=== PATIENT | female | born 1960 | race Caucasian/White ===

== ENCOUNTER → 2017-08-26 | Outpatient (CLI) | payer OTHER, BC ==
[~2017-08-26] MED LIST: APRE1TAB3 PO; CYAN1LOZ2 PO; GARL10007 PO; MULT-506 PO; NAPR-1169 PO; VNTHFA/IN INH
--- NOTE | 2017-08-26 16:03 | DIAGNOSTIC IMAGING REPORT ---
L HAND MIN 3 VIEWS ROUTINE CLINICAL HISTORY: Left hand pain. Trauma. COMPARISON: None. DISCUSSION: No acute fractures or dislocations are visualized. There are minor degenerative changes. IMPRESSION: No acute fractures or dislocations identified. Electronically signed by: Charles Walters M.D. 08/26/2017 4:01 PM Dictated Date/Time: 08/26/2017 4:00 PM
== END | disposition home or self-care (01) ==
LOC: C.RAD1850 15:52
PROVIDERS: ATTEND Nurse Practitioner Adult Health
DX: M79.642 Pain in left hand (principal)

== ENCOUNTER 2017-11-19 22:46 | Emergency (ER) | payer BC, OTHER ==
[~2017-11-19] VITALS: Ht 162.6 cm; Wt 79.9 kg
[2017-11-19] MEDS ORDERED: OXYMETAZOLINE HCL 0.05% NA SPR 15 ML BTL ONE (22:47)
[2017-11-19 22:51] VITALS: TEMP 36.6; Ht 162.6 cm; Wt 79.9 kg
[2017-11-19] MEDS ORDERED: CHOL20007 PO (23:04)
[2017-11-19] MEDS ORDERED: VITACAP26 PO (23:05)
[2017-11-19] MEDS ORDERED: ROSU20TA PO (23:27)
[2017-11-20 00:47] VITALS: BP 137/88; PULSE 78; O2SAT 100
--- NOTE | 2017-11-20 01:02 | EMERGENCY ROOM VISIT NOTE ---
History First contact with patient: 22:50 Chief Complaint: NOSE BLEED (MINOR) Stated Complaint: NOSE BLEED History of Present Illness The patient is a 57 year old female who presents to the Emergency Room with complaints of nosebleed just prior to arrival. Patient states she's been blowing her nose more frequently this week. She is on a baby aspirin and occasionally takes naproxen per patient. Patient denies chest pain, dyspnea, fever, chills, cough, congestion, lightheadedness, and dizziness, weakness. No history of nosebleeds in the past. Review of Systems See HPI for pertinent positives & negatives. A total of 10 systems reviewed and were otherwise negative. Past Medical/Surgical History Medical Problems: (1) Asthma (2) Hypertension Surgical Problems: (1) S/P tonsillectomy Family History Diabetes mellitus FH: heart disease FHx: cancer Hypertension Social History Smoking Status: Never Smoker Alcohol Use: none Drug Use: none Marital Status: Housing Status: lives with family Occupation Status: employed Current/Historical Medications Scheduled Albuterol Hfa (Ventolin Hfa), 2-4 PUFFS INH Q6H Apremilast (Otezla), 30 MG PO BID Cholecalciferol (Vitamin D3), 1 TAB PO DAILY Multivitamin (Multivitamin), 2 TAB PO DAILY Naproxen (Naprosyn), 500 MG PO BID Rosuvastatin Calcium (Crestor), Unknown Dose PO 2XWK Vitamins C & E (Vitamin C), 1 CAP PO DAILY Physical Exam Vital Signs Date Time Temp Pulse Resp B/P (MAP) Pulse Ox O2 Delivery O2 Flow Rate FiO2 11/19/17 23:40 87 18 138/89 100 11/19/17 22:51 36.6 85 20 177/108 96 Room Air Physical Exam VITALS: Vitals are noted on the nurse's note and reviewed by myself. Vital signs hypertensive GENERAL: Pleasant female anxious-appearing, in no acute distress, nondiaphoretic , well-developed well-nourished. SKIN: The skin was without rashes, erythema, edema, or bruising. There is no tenting of the skin. Capillary reflex less than 2 seconds. HEAD: Normocephalic atraumatic. EARS: External auditory canals clear, tympanic membranes pearly pollard without erythema or effusion bilaterally. EYES: Pupils equal round and reactive to light and accommodation. Conjunctivae without injection, sclerae without icterus. Extraocular movements intact. NOSE: Patent, left nare with active bleeding. No sinus tenderness. MOUTH: Mucous membranes moist. Pharynx without erythema or exudate. Uvula midline. Airway patent. Tongue does not deviate. No active bleeding in the back of the pharynx that was visualized. NECK: Supple without nuchal rigidity. No lymphadenopathy. No thyromegaly. Cervical spine is nontender. No JVD. HEART: Regular rate and rhythm without murmurs gallops or rubs. LUNGS: Clear to auscultation bilaterally without wheezes, rales or rhonchi. No dullness to percussion. No retractions or accessory muscle use. ABDOMEN: Positive bowel sounds x 4. Normal tympanic percussion. Soft, nontender, without masses or organomegaly. Aleman sign negative. No guarding or rebound tenderness. MUSCULOSKELETAL: No muscle atrophy, erythema, or edema noted. NEURO: Patient was alert and oriented to person place and time. Normal sensation to light and sharp touch. No focal neurological deficits. Medical Decision & Procedures Medications Administered Medications (Trade) Dose Ordered Sig/Lobito Route Start Time Stop Time Status Last Admin Dose Admin Oxymetazoline HCl (Afrin 0.05% Nasal [place]) 75 sprays STK-MED ONCE .ROUTE 11/19/17 22:47 11/19/17 22:48 DC 11/19/17 22:47 75 SPRAYS ED Course Prior records/ancillary studies reviewed. Triage Nursing notes reviewed. Additional history obtained from EMS. The patient's history was concerning for epistaxis. Differential diagnosis: Etiologies such as anterior epistaxis, coagulopathy, traumatic injury, fracture , septal hematoma, posterior epistaxis as well as other pathologies were entertained. Physical examination findings: As above. Anterior bleeding source. ER treatment provided: Direct pressure Intranasal phenylephrine On reassessment the patient felt better. Diagnostics interpreted by me: Deferred This appears to be consistent with epistaxis. Patient was observed for 2 hours. No more rebleeding. Blood pressure came down on its. She is advised to hold her antiplatelet medication for the next 3 days and follow-up with ENT or family here in a few days or here in the ER sooner for bleeding, headache, chest pain, dyspnea, worsening signs or symptoms or as needed. Patient was neurovascularly and neurologically intact. She is well-appearing. She was asymptomatic. By the evaluation outlined above emergent etiologies such as coagulopathy, traumatic injury, fracture, septal hematoma, posterior epistaxis, as well as others were deemed relatively unlikely. The pt informed about the findings as listed above. All questions were answered and \ pleased with the treatment. Return instructions were outlined and the patient was discharged in stable condition. Referral: The patient was referred to family care and/or ENT for a recheck of the current condition Medical Decision As above Medication Reconcilliation Current Medication List: was personally reviewed by me Blood Pressure Screening Patient's blood pressure: Elevated blood pressure Blood pressure disposition: Elevated BP felt to be situational Impression Primary Impression: Anterior epistaxis Departure Information Dispostion Home / Self-Care Condition GOOD Forms WORK / SCHOOL INSTRUCTIONS, HOME CARE DOCUMENTATION FORM, IMPORTANT VISIT INFORMATION Patient Instructions Nosebleeds - [facility], Former[facility], [facility]–1983 Additional Instructions Do not take your aspirin or naproxen for the next 3 days. Avoid scratching, rubbing, picking, or blowing your nose. The continuous drier helper your nasal passages the more likely they are to bleed. The following two products are available [id number] at most drug stores/pharmacies. [place] nasal spray or similar generic saline spray to keep the nose moist 3 to 4 times a day. If bleeding recurs apply direct pressure for an uninterrupted 20 minutes. On and off pressure is much less effective because it will disturb the clots that are forming. If the bleeding is still a problem after 20 minutes or is so heavy despite the pressure return to the emergency department. Continue current medications. For ENT([id number]) follow up call Dr. Mckinney office at [phone] for an appointment this week. Tell the manager civil you were referred from the ER. Follow-up with your primary care physician in 2 to 3 days for a recheck of your current condition.
== END 2017-11-20 00:48 | disposition home or self-care (01) ==
LOC: EDBD 22:46 → C.EDB 22:47
DX: R04.0 Epistaxis (principal); J45.909 Unspecified asthma, uncomplicated; I10 Essential (primary) hypertension; Z79.82 Long term (current) use of aspirin; Z83.3 Family history of diabetes mellitus; Z82.49 Family history of ischemic heart disease and other diseases of the circulatory system

== ENCOUNTER 2017-11-24 09:51 | Emergency (ER) | payer OTHER ==
[~2017-11-24 09:51] MED LIST changes: +CHOL20007 PO; -CYAN1LOZ2 PO; -GARL10007 PO; +ROSU20TA PO; +VITACAP26 PO
[2017-11-24 09:55] VITALS: TEMP 36.5
[2017-11-24] MEDS ORDERED: OXYMETAZOLINE HCL 0.05% NA SPR 15 ML BTL ONE (10:03)
--- NOTE | 2017-11-24 11:31 | EMERGENCY ROOM VISIT NOTE ---
History Report prepared by Blas: Trevon Glass Under the Supervision of: Dr. Dhara Matt M.D. First contact with patient: 10:43 Chief Complaint: NOSE BLEED (MINOR) Stated Complaint: NOSE BLEED HERE SAT FOR SAME THING History of Present Illness The patient is a 57 year old female who presents to the Emergency Room with complaints of on and off nose bleeding for the past week. The patient states that she was in the ED a week ago with a nosebleed, and she was sent home with a nose spray and clamp, and as soon as she got home it started to bleed again. She is currently on aspirin, and she took a naproxen yesterday for her neck pain. The patient has been in contact with her ENT doctor. She states that her stool is bloody and also black. She additionally states that she is on cholesterol medicine, and it has been bothering her. Source of History: patient Onset: a week ago Position: nose Quality: other (bleeding) Timing: other (on and off) Associated Symptoms: + neck pain Note: Associated symptoms: black and bloody stool Review of Systems See HPI for pertinent positives & negatives. A total of 10 systems reviewed and were otherwise negative. Past Medical & Surgical Medical Problems: (1) Asthma (2) Hypertension Surgical Problems: (1) S/P tonsillectomy Family History Diabetes mellitus FH: heart disease FHx: cancer Hypertension Social History Smoking Status: Never Smoker Alcohol Use: none Drug Use: none Marital Status: Housing Status: lives with family Occupation Status: employed Current/Historical Medications Scheduled Acetaminophen (Tylenol Extra Strength), 2 TABS PO Q4H Albuterol Hfa (Ventolin Hfa), 2-4 PUFFS INH Q6H Amoxicillin (Amoxil), 500 MG PO TID Apremilast (Otezla), 30 MG PO BID Cholecalciferol (Vitamin D3), 1 TAB PO QAM Diphenhydramine Hcl (Sleep) (Sleep Aid), 1 TAB PO HS Multivitamin (Multivitamin), 2 TAB PO QAM Allergies Coded Allergies: Codeine (Unverified Allergy, Unknown, THROAT SWELLING, 11/25/17) Physical Exam Vital Signs Date Time Temp Pulse Resp B/P (MAP) Pulse Ox O2 Delivery O2 Flow Rate FiO2 11/24/17 11:49 84 17 154/95 95 11/24/17 09:55 36.5 102 20 175/108 98 Room Air Physical Exam Vital signs reviewed. General: Well-appearing female, in no significant distress. HEENT: No scleral icterus, PERRLA, neck supple. Atraumatic. Dried blood to the right naris greater than the left naris. No posterior oropharynx bleeding. Cardiovascular: Regular rate and rhythm, no extra sounds. Pulmonary: Clear to auscultation bilaterally, normal work of breathing. Abdomen: Soft, nontender, nondistended, positive bowel sounds. Musculoskeletal: Atraumatic, no peripheral edema. Neurologic: Patient awake alert and oriented x 3 Skin: Warm, dry, no rash Medical Decision & Procedures Laboratory Results Test 11/24/17 11:12 Bedside Hemoglobin 11.6 g/dl (12.0-16.0) Bedside Hematocrit 34 % (37-47) Bedside Sodium 142 mEq/L (135-144) Bedside Potassium 3.8 mEq/L (3.3-5.0) Bedside Chloride 106 mEq/L (101-112) Bedside Total CO2 26 mEq/l (24-31) Anion Gap 15.0 mmol/L (16-25) Bedside Blood Urea Nitrogen 21 mg/dl (7-18) Bedside Creatinine 0.5 mg/dl (0.6-1.3) Bedside Glucose (other) 106 mg/dl (70-99) Bedside Ionized Calcium (Nicolasa) 1.19 mmol/l (1.12-1.32) Laboratory results per my review. Medications Administered Medications (Trade) Dose Ordered Sig/Lobito Route Start Time Stop Time Status Last Admin Dose Admin Oxymetazoline HCl (Afrin 0.05% Nasal [place]) 75 sprays STK-MED ONCE .ROUTE 11/24/17 10:03 11/24/17 10:04 DC 11/24/17 10:03 75 SPRAYS Procedure Anterior Nasal Packing Indication: recurrent epistaxis Verbal consent obtained. Risks and benefits were explained with the usual customary discussion. A time out was taken. No visible acute bleeding no clots seen anteriorly. A 5.5-cm nasal balloon was placed in a standard fashion in the right naris. The patient tolerated this well. Hemostasis was achieved. No complications. ED Course 1003: Ordered Oxymetazoline HCl 75 sprays .ROUTE 1052: Past medical records reviewed. The patient was evaluated in room C10. A complete history and physical examination was performed. 1103: I discussed the patient's case with Dr. Naif GEORGES, and he says to karoline the patient, and he will see her in the office four days. If the patient bleeds tomorrow, then she should come in, and he will come in for an emergent scope. 1130: I performed put in an anterior nasal packing as described above. I discussed findings with her. She verbalized agreement of the treatment plan. She was discharged home. Medical Decision Differential diagnosis: Etiologies such as anterior epistaxis, coagulopathy, traumatic injury, fracture , septal hematoma, posterior epistaxis as well as other pathologies were entertained. This patient was evaluated and appeared to be in no significant distress. IV access was obtained and laboratory work was drawn. The patient was placed on the night monitor and found to be in a normal sinus rhythm. Patient was given Afrin nasal spray protocol. On my evaluation there is no further bleeding. The clamp was removed and she was observed. The patient is very distraught by multiple episodes of epistaxis daily for the last week. I did speak with Dr. Disla as the patient did not initially want nasal packing. The patient was offered hemoderm topical powder however she does not feel that this is sufficient and she feels she will likely blow her nose despite advice otherwise. Family and patient consulted and decided the nasal packing is what they would prefer. A 5.5 cm rapid Rhino was placed in the right nares with 5 mL 's of air. The patient would not tolerate more. She was placed on amoxicillin 3 times a day for the next 3 days. Arrangements were made for the patient to return in 48 hours for packing removal in the emergency department. The patient will follow-up next week with Dr. Disla of ENT. She will return to the ER over the weekend for recurrent bleeding or any medical concerns. Medication Reconcilliation Current Medication List: was personally reviewed by me Blood Pressure Screening Patient's blood pressure: Elevated blood pressure Blood pressure disposition: Elevated BP felt to be situational Consults Time Called: 1102 Consulting Physician: Dr. Naif GEORGES Returned Call: 1103 I discussed the patient's case with Dr. Naif GEORGES, and he says to karoline the patient, and he will see her in the office four days. If the patient bleeds tomorrow, then she should come in, and he will come in for an emergent scope. Impression Primary Impression: Epistaxis Scribe Attestation The scribe's documentation has been prepared under my direction and personally reviewed by me in its entirety. I confirm that the note above accurately reflects all work, treatment, procedures, and medical decision making performed by me. Departure Information Dispostion Home / Self-Care Prescriptions Amoxicillin (AMOXIL) 500 Mg Cap 500 MG PO TID, #21 CAP Prov: Dhara Matt M.D. 11/24/17 Referrals Alis Patterson D.O. (PCP) Forms HOME CARE DOCUMENTATION FORM, IMPORTANT VISIT INFORMATION, WORK / SCHOOL INSTRUCTIONS Patient Instructions My [facility] Additional Instructions Diagnosis: Recurrent epistaxis Amoxicillin 500 mg 3 times a day for 3 days. Do not take ibuprofen, Aleve or aspirin. Tylenol 650 mg every 6 hours as needed for pain. Leave the nasal packing in place. Do not blow your nose until you are reevaluated in 48 hours. Use a warm air humidifier at night to sleep. Return to the emergency department on Tuesday for nasal packing removal. Follow-up with Dr. Disla as scheduled for you by case management Tuesday at 11:00. Return to the ER for worsening of symptoms or any medical concerns.
[2017-11-24 11:33] LABS: ISTAT CREATININE 0.5 mg/dl (0.6-1.3); ISTAT IONIZED CALCIUM 1.19 mmol/l (1.12-1.32); ISTAT POTASSIUM 3.8 mEq/L (3.3-5.0)
[2017-11-24] MEDS ORDERED: AMOX500C3 PO (11:37)
[2017-11-24 11:49] VITALS: BP 154/95; PULSE 84; O2SAT 95
[2017-11-25] MEDS ORDERED: DIPH1TAB98 PO (14:32)
[2017-11-25] MEDS ORDERED: ACET-1257 PO (14:32)
[2017-11-28] MEDS ORDERED: TRAM-10 PO (16:26)
[2017-11-28] MEDS ORDERED: AMOX875T PO (16:26)
== END 2017-11-24 11:50 | disposition home or self-care (01) ==
LOC: C.EDB 09:52 → C.EDC 11:50
DX: R04.0 Epistaxis (principal); J45.909 Unspecified asthma, uncomplicated; I10 Essential (primary) hypertension; Z83.3 Family history of diabetes mellitus; Z82.49 Family history of ischemic heart disease and other diseases of the circulatory system

== ENCOUNTER 2017-11-25 13:54 | Emergency (ER) | payer OTHER ==
[~2017-11-25] VITALS: Ht 162.6 cm; Wt 74.4 kg
[~2017-11-25 13:54] MED LIST changes: +AMOX500C3 PO
[2017-11-25 13:57] VITALS: TEMP 36.6; Ht 162.6 cm; Wt 74.4 kg
[2017-11-25] MEDS ORDERED: DIPH1TAB98 PO ×2 (14:32)
[2017-11-25] MEDS ORDERED: ACET-1257 PO ×2 (14:32)
--- NOTE | 2017-11-25 14:35 | EMERGENCY ROOM VISIT NOTE ---
History Report prepared by Blas: Luis Carlos Griffin Under the Supervision of: Dr. Shiv Nicholas D.O. First contact with patient: 14:01 Chief Complaint: NOSE BLEED (MINOR) Stated Complaint: INFLATE BALO[place] IN NOSE History of Present Illness The patient is a 57 year old female who presents to the Emergency Room with complaints of intermittent epistaxis that began yesterday. She was seen in the ER at this time and had a Rhino-Rocket placed in her right nares. She is supposed to have it removed tomorrow. She notes that last night and earlier today, she tasted and felt blood running down her throat. She notes that she coughed/spit up and confirmed that it was blood. She is currently experiencing a headache and nausea. She denies any other abnormal symptoms. She has an appointment with an ENT physician for a nasal cauterization procedure in three days. She takes Aspirin daily. Source of History: patient Onset: yesterday Position: nose Symptom Intensity: moderate Quality: other (Epistaxis) Timing: intermittent Associated Symptoms: + headache, + nausea Note: She denies any other abnormal symptoms. Review of Systems See HPI for pertinent positives & negatives. A total of 10 systems reviewed and were otherwise negative. Past Medical & Surgical Medical Problems: (1) Asthma (2) Hypertension Surgical Problems: (1) S/P tonsillectomy Family History Diabetes mellitus FH: heart disease FHx: cancer Hypertension Social History Smoking Status: Never Smoker Alcohol Use: none Drug Use: none Marital Status: Housing Status: lives with family Occupation Status: employed Current/Historical Medications Scheduled Acetaminophen (Tylenol Extra Strength), 2 TABS PO Q4H Albuterol Hfa (Ventolin Hfa), 2-4 PUFFS INH Q6H Amoxicillin (Amoxil), 500 MG PO TID Apremilast (Otezla), 30 MG PO BID Cholecalciferol (Vitamin D3), 1 TAB PO DAILY Diphenhydramine Hcl (Sleep) (Sleep Aid), 1 TAB PO HS Multivitamin (Multivitamin), 2 TAB PO DAILY Allergies Coded Allergies: Codeine (Unverified Allergy, Unknown, THROAT SWELLING, 11/25/17) Physical Exam Vital Signs Date Time Temp Pulse Resp B/P (MAP) Pulse Ox O2 Delivery O2 Flow Rate FiO2 11/25/17 13:57 36.6 101 18 136/94 98 Room Air Physical Exam CONSTITUTIONAL/VITAL SIGNS: Reviewed / noted above. GENERAL: Non-toxic in appearance. INTEGUMENTARY: Warm, dry, and [place]. HEAD: Normocephalic. EYES: without scleral icterus or trauma. ENT/OROPHARYNX: clear and moist. Rhino-Rocket in place to the right nares. No bleeding. LYMPHADENOPATHY/NECK: Is supple without lymphadenopathy or meningismus. RESPIRATORY: Lungs clear and equal. CARDIOVASCULAR: Regular rate and rhythm. GI/ABDOMEN: Soft and nontender. No organomegaly or pulsatile mass. No rebound or guarding. Normal bowel sounds. EXTREMITIES: Warm and well perfused. BACK: No CVA tenderness. NEUROLOGICAL: Intact without focal deficits. PSYCHIATRIC: normal affect. MUSCULOSKELETAL: Normally developed with good muscle tone. Medical Decision & Procedures ED Course 1401: Previous medical records were reviewed. The patient was evaluated in room A10. A complete history and physical examination was performed. 1435: On reevaluation, the patient is resting. I discussed the results and findings with the patient. She verbalized agreement of the treatment plan. She was discharged home. Medical Decision Differential diagnosis: Etiologies such as anterior epistaxis, coagulopathy, traumatic injury, fracture , septal hematoma, posterior epistaxis as well as other pathologies were entertained. This is a 57-year-old female who presents to the ED with a chief complaint of wanting her Rhino Rocket for recheck. She states that it bled a little last night while she was in bed last night and a little this morning. Her exam today reveals a Rhino Rocket in place in the right nares. There is no evidence of bleeding in the posterior oropharynx or in the nose. Nares is clear. Her bleeding was likely related to some residual blood in the posterior nasopharynx area. The patient was placed on amoxicillin yesterday. She has an appointment to see Dr. Disla on Tuesday. There is no evidence of active bleeding. The patient was felt to be stable for discharge. Medication Reconcilliation Current Medication List: was personally reviewed by me Blood Pressure Screening Patient's blood pressure: Normal blood pressure Blood pressure disposition: Did not require urgent referral Impression Primary Impression: Epistaxis Scribe Attestation The scribe's documentation has been prepared under my direction and personally reviewed by me in its entirety. I confirm that the note above accurately reflects all work, treatment, procedures, and medical decision making performed by me. Departure Information Dispostion Home / Self-Care Referrals Alis Patterson D.O. (PCP) Forms HOME CARE DOCUMENTATION FORM, IMPORTANT VISIT INFORMATION, WORK / SCHOOL INSTRUCTIONS Patient Instructions My [facility] Additional Instructions Follow-up with Dr. Disla on Tuesday as scheduled. Return for any concerns. Continue Amoxicillin.
[2017-11-25 14:51] VITALS: BP 132/87; PULSE 97; O2SAT 98
[2017-11-28] MEDS ORDERED: TRAM-10 PO ×2 (16:26)
[2017-11-28] MEDS ORDERED: AMOX875T PO ×2 (16:26)
== END 2017-11-25 14:53 | disposition home or self-care (01) ==
LOC: C.EDB 13:54 → C.EDA 14:53
DX: Z09 Encounter for follow-up examination after completed treatment for conditions other than malignant neoplasm (principal); R04.0 Epistaxis; R51 Headache; R11.0 Nausea; Z79.82 Long term (current) use of aspirin; J45.909 Unspecified asthma, uncomplicated; I10 Essential (primary) hypertension; Z83.3 Family history of diabetes mellitus; Z80.9 Family history of malignant neoplasm, unspecified; Z82.49 Family history of ischemic heart disease and other diseases of the circulatory system; Z79.899 Other long term (current) drug therapy

== ENCOUNTER 2017-11-28 12:25 | Day surgery (SDC) | payer OTHER ==
[~2017-11-28] VITALS: Ht 162.6 cm; Wt 75.0 kg
[~2017-11-28 12:25] MED LIST changes: +ACET-1257 PO; +DIPH1TAB98 PO
--- NOTE | 2017-11-28 12:46 | History and Physical ---
History & Physical Date Nov 28, 2017. Chief Complaint nose bleed History of Present Illness The patient is a 57 year old female with complaints of persistent epistaxis after 3 ER visits, packed right side with epistat, still bleeding behind right middle turbinate Past Medical/Surgical History Medical Problems: (1) Asthma (2) Hypertension Surgical Problems: (1) S/P tonsillectomy Additional History Hepatic Disease: No Endocrine Disorder: No Kidney Disease: No Hypertension: Yes Heart Disease: No Bleeding Tendencies: Yes Infectious Diseases: No Allergies Coded Allergies: Codeine (Verified Allergy, Unknown, THROAT SWELLING, 11/28/17) Home Medications Scheduled Amoxicillin (Amoxil), 500 MG PO TID Apremilast (Otezla), 30 MG PO BID Cholecalciferol (Vitamin D3), 1 TAB PO QAM Diphenhydramine Hcl (Sleep) (Sleep Aid), 1 TAB PO HS Multivitamin (Multivitamin), 2 TAB PO QAM Scheduled PRN Acetaminophen (Tylenol Extra Strength), 2 TABS PO Q4H PRN for Pain Albuterol Hfa (Ventolin Hfa), 2-4 PUFFS INH Q6H PRN for Cough Physical Examination Skin: warm/dry, no rash Eyes: normal inspection, EOMI, sclerae normal ENT: normal ENT inspection, pharynx normal Head: normocephalic, atraumatic Neck: supple, no adenopathy, trachea midline Respiratory/Chest: lungs clear, normal breath sounds, no respiratory distress Cardiovascular: regular rate, rhythm, no edema, no murmur Abdomen / GI: normal bowel sounds, non tender Back: normal inspection Extremities: normal inspection, normal range of motion Neurologic/Psych: no motor/sensory deficits, alert, normal reflexes, oriented x 3 Diagnosis epistaxis Plan of Treatment endoscopic cautery
[2017-11-28 12:47] VITALS: BP 180/114; PULSE 94; TEMP 37; O2SAT 98; Ht 162.6 cm; Wt 75.0 kg
[2017-11-28] MEDS ORDERED: MoRPHine SULFATE 2 MG/ML CARP IM PRN (13:00)
[2017-11-28] MEDS ORDERED: MoRPHine SULFATE 2 MG/ML CARP ONE (13:23)
[2017-11-28] MEDS ORDERED: ACETAMINOPHEN 500 MG TAB PO ONE (13:37)
[2017-11-28] MEDS ORDERED: NURSING VERBAL MED ORDER ONE (13:45)
[2017-11-28] MEDS ORDERED: ONDANSETRON INJ 2 MG/ML 2 ML VIAL IV PRN (15:00)
[2017-11-28] MEDS ORDERED: ATROPINE SULFATE 0.1 MG/ML 5ML SYR IV PRN (15:00)
[2017-11-28] MEDS ORDERED: EpHEDrine SULFATE INJ 50 MG/ML AMP IV PRN (15:00)
[2017-11-28] MEDS ORDERED: GELATIN SPONGE SZ 100 ONE (15:01)
[2017-11-28] MEDS ORDERED: GELATIN SPONGE 12-7MM ONE (15:01)
[2017-11-28] MEDS ORDERED: SCOPOLAMINE 1.5 MG TDSY TD ONE ×2 (15:01→15:15)
[2017-11-28] MEDS ORDERED: MIDAZOLAM HCL 1 MG/ML 2ML VIAL ONE (15:24)
[2017-11-28] MEDS ORDERED: ROCURONIUM BROMIDE 10 MG/ML 5 ML VIAL IV ONE (15:24)
[2017-11-28] MEDS ORDERED: LIDOCAINE HCL 2% 2 ML VIAL (20MG/ML) ONE (15:24)
[2017-11-28] MEDS ORDERED: SUCCINYLCHOLINE CHLORIDE 20 MG/ML 10 ML VIAL IV ONE (15:24)
[2017-11-28] MEDS ORDERED: PROPOFOL IV EMULSION 10 MG/ML 20 ML VIAL IV ONE (15:24)
[2017-11-28] MEDS ORDERED: FENTANYL CITRATE INJ 50 MCG/1 ML 2 ML VIAL ONE (15:25)
[2017-11-28] MEDS ORDERED: LIDO 2%/EPINEPHRINE 1:100000 20 ML VIAL INFIL ONE (15:26)
[2017-11-28] MEDS ORDERED: LIDOCAINE 4% INH SOLN 4 ML BTL ONE ×2 (15:32→15:34)
[2017-11-28] MEDS ORDERED: ONDANSETRON INJ 2 MG/ML 2 ML VIAL ONE (15:59)
[2017-11-28] MEDS ORDERED: DEXAMETHASONE SOD INJ 4 MG/ML VIAL ONE (15:59)
[2017-11-28] MEDS ORDERED: SODIUM CHLORIDE 0.9% 1000ML 1,000 ML IV SCH (16:23)
--- NOTE | 2017-11-28 16:24 | [facility] Post Operative Brief Note ---
Immediate Operative Summary Operative Date Nov 28, 2017. Pre-Operative Diagnosis Epistaxis Post-Operative Diagnosis Posterior Epistaxis Procedure(s) Performed Endoscopic Cautery and Posterior Packing Surgeon Dr. Disla Service Attendant Cafeteria Surgeon(s) none Estimated Blood Loss 20cc Findings Consistent with Post-Op Diagnosis Specimens None Drains None Anesthesia Type General Complication(s) none Disposition Accompanied Pt To Recover: yes Disposition: Recovery Room / PACU
[2017-11-28] MEDS: FENTANYL CITRATE INJ 50 MCG/1 ML 2 ML VIAL IV PRN ×3 (16:26→16:36)
[2017-11-28] MEDS ORDERED: AMOX875T PO ×2 (16:26)
[2017-11-28] MEDS ORDERED: TRAM-10 PO ×2 (16:26)
--- NOTE | 2017-11-28 16:27 | Discharge Instructions ---
Discharge Instructions Date of Service Nov 28, 2017. Admission Reason for Admission: Epistaxis Discharge Discharge Diagnosis / Problem: posterior epistaxis Discharge Goals Goal(s): Therapeutic intervention Activity Recommendations Activity Limitations: per Instructions/Follow-up section . Instructions / Follow-Up Instructions / Follow-Up ACTIVITY RECOMMENDATIONS: * Being up and around is good, but no strenuous activity, heavy lifting or physical exertion for one week. * Keep your head elevated 30 degrees when lying down or sleeping. * Do not blow your nose for 48 hours, sniff back instead. * Avoid hot showers. OVER THE COUNTER MEDICATIONS: * You may use Tylenol * Avoid aspirin or aspirin containing products, e.g. as they may increase bleeding. SPECIAL CARE INSTRUCTIONS: * Expect to have bloody drainage from your nose and/or down your throat for one to three days. Change drip pad as needed. * Begin irrigating your nose with saline solution today, at least six to ten times per day and sniff back to help remove old clots or crust. * You may experience nasal and facial congestion, pain and pressure, this is normal. * Please call with any significant and/or progressive pain, redness, swelling around the eyes, visual changes, fever of 101.5 degrees F, active bleeding or any problems or concerns. * If active bleeding occurs, spray the nose three times at one minute intervals with Afrin spray and call or cell phone: . If unable to reach the doctor, go to the nearest Emergency Department. Special Diet: * Avoid extremely hot fluids. FOLLOW UP VISIT: Follow-up Visit with Dr. Disla If not already scheduled, please call to schedule. Current Hospital Diet Patient's current hospital diet: Discharge Diet Recommended Diet: Regular Diet Procedures Procedures Performed: Endoscopic Cautery and Posterior Packing Pending Studies Studies pending at discharge: no Medical Emergencies . Who to Call and When: Medical Emergencies: If at any time you feel your situation is an emergency, please call [phone] immediately. . Non-Emergent Contact Non-Emergency issues call your: Primary Care Provider . "Provider Documentation" section prepared by Bonita Disla. . VTE Core Measure Inpt VTE Proph given/why not?: SCD's [place] Drug Monitoring Program Search Results: no issues identified
[2017-11-28] MEDS ORDERED: OXYCODONE/ACETAMINOPHEN 5-325 TAB PO PRN ×2 (16:30)
--- NOTE | 2017-11-28 16:31 | [facility] Operative Report ---
Operative Report Operative Date Nov 28, 2017. Pre-Operative Diagnosis Epistaxis Post-Operative Diagnosis Posterior Epistaxis Procedure(s) Performed Endoscopic Cautery and Posterior Packing Surgeon Dr. Disla Jointer Submarine Cable Surgeon(s) none Estimated Blood Loss 20cc Findings Bleeding site at posterior and of right middle turbinate just below the superior turbinate above the choanae Specimens None Drains none Anesthesia Gen. endotracheal Complication(s) None Disposition Recovery Room / PACU Indications 57-year-old lady with recurrent and persistent epistaxis for the past 9 days with 3 visits to the emergency room and packing in the right nostril Description of Procedure The patient was brought to the operating room placed in the supine position general endotracheal anesthesia was induced the packing of the right nares was removed and the patient was prepped with Betadine paint and draped in sterile manner. The 0 endoscope was used cottonoid pledgets of 4% sent Xylocaine mixed with 1 mL of epinephrine was used for topical anesthesia. The right nares were suctioned clean of Betadine and clots the bleeding site was identified posterior to the right middle turbinate and inferior to the right superior turbinate above the choana. The bleeding site was cauterized using the 8 Tamazight suction cautery with good control. Posterior packing was started by layering long strips of Gelfoam from the floor of the nose up the choanae. FloSeal was then used to fill the nasal cavity using 9 mL of FloSeal. Another piece of Gelfoam was placed anteriorly. The patient her procedure well was taken to recovery area in satisfactory condition. I attest to the content of the Intraoperative Record and any orders documented therein. Any exceptions are noted below.
--- NOTE | 2017-11-28 16:45 | Anesthesiology Progress Note ---
Anesthesia Post Op Note Date & Time Nov 28, 2017 at 16:45 Vital Signs Pain Intensity: 4 Vital Signs Past 12 Hours Date Time Temp Pulse Resp B/P (MAP) Pulse Ox O2 Delivery O2 Flow Rate FiO2 11/28/17 16:23 36.2 100 22 181/114 100 Oxymask 10 11/28/17 12:47 37 94 18 180/114 98 Room Air Notes Mental Status: alert / awake / arousable, participated in evaluation Pt Amnestic to Procedure: Yes Nausea / Vomiting: adequately controlled Pain: adequately controlled Airway Patency, RR, SpO2: stable & adequate BP & HR: stable & adequate Hydration State: stable & adequate Anesthetic Complications: no major complications apparent
[2017-11-28 17:12] VITALS: BP 126/67; PULSE 82; TEMP 36.6; O2SAT 95
[2017-11-28 17:42] VITALS: BP 145/74; PULSE 80; TEMP 36.7; O2SAT 96
== END 2017-11-28 17:58 | disposition home or self-care (01) ==
LOC: C.ACU 12:25
PROVIDERS: ATTEND Otolaryngology
DX: R04.0 Epistaxis (principal); J45.909 Unspecified asthma, uncomplicated; I10 Essential (primary) hypertension

== ENCOUNTER 2018-03-08 06:11 | Observation (INO) | payer OTHER ==
[2018-02-22 13:15] VITALS: BMI 28.0
--- NOTE | 2018-02-22 13:54 | PAT Medication Instructions ---
Service Date Feb 22, 2018. Current Home Medication List Acetaminophen (Tylenol Extra Strength), 2 TABS PO TID PRN for Pain Albuterol Hfa (Ventolin Hfa), 2-4 PUFFS INH Q6H PRN for Cough Apremilast (Otezla), 30 MG PO BID Cholecalciferol (Vitamin D3), 1 TAB PO PRN Diphenhydramine Hcl (Sleep) (Sleep Aid), 1 TAB PO HS PRN for PRN Garlic (Garlic), 1,000 MG PO QAM Xnbwhmgpnko-Ktgybgxiwgn-Jlw C- (Glucosamine Chondroitin), 1 TAB PO BID Multivitamin (Multivitamin), 2 TAB PO QAM Pantoprazole (Protonix), 40 MG PO BID PRN for RN Tramadol (Ultram), 50 MG PO Q4H PRN for Pain [Cinnamon], 1 TAB PO QAM [Turmeric], 1 TAB PO QAM [Vitamin B12], 1 TAB PO QAM Medication Instructions For Your Scheduled Surgery -Check with your prescriber for instructions for: Apremilast (Otezla), 30 MG PO BID - Hold the following medications 2 weeks prior to surgery: Garlic (Garlic), 1,000 MG PO QAM Qnohwbmdfqh-Xpnfuxstald-Oel C- (Glucosamine Chondroitin), 1 TAB PO BID [Cinnamon], 1 TAB PO QAM [Turmeric], 1 TAB PO QAM - Hold the following medications the morning of surgery: Cholecalciferol (Vitamin D3), 1 TAB PO PRN Diphenhydramine Hcl (Sleep) (Sleep Aid), 1 TAB PO HS PRN for PRN Multivitamin (Multivitamin), 2 TAB PO QAM [Vitamin B12], 1 TAB PO QAM - Take the following medications the morning of surgery with a sip of water: Acetaminophen (Tylenol Extra Strength), 2 TABS PO TID PRN for Pain (if needed, can be taken up to four hours before surgery) Albuterol Hfa (Ventolin Hfa), 2-4 PUFFS INH Q6H PRN for Cough (if needed) Pantoprazole (Protonix), 40 MG PO BID PRN for RN (if needed) Tramadol (Ultram), 50 MG PO Q4H PRN for Pain (if needed, can be taken up to four hours before surgery) - Take the following medications as scheduled the night before surgery: Acetaminophen (Tylenol Extra Strength), 2 TABS PO TID PRN for Pain (if needed) Albuterol Hfa (Ventolin Hfa), 2-4 PUFFS INH Q6H PRN for Cough (if needed) Cholecalciferol (Vitamin D3), 1 TAB PO PRN (if needed) Diphenhydramine Hcl (Sleep) (Sleep Aid), 1 TAB PO HS PRN for PRN (if needed) Pantoprazole (Protonix), 40 MG PO BID PRN for RN (if needed) Tramadol (Ultram), 50 MG PO Q4H PRN for Pain (if needed) If you have any questions please call us at [phone] or [phone] or [phone]
[2018-02-22 14:45] LABS: BASO % 0.3 %; BASO ABS # 0.02 K/uL (0-0.2); EOS % 2.7 %; EOS ABS # 0.19 K/uL (0-0.5); HEMATOCRIT 36.7 % (37-47); HEMOGLOBIN 11.6 g/dL (12.0-16.0); IG# 0.01 K/uL (0.00-0.02); LYMPH ABS # 2.17 K/uL (1.2-3.4); MEAN CELL VOLUME 81.2 fL (80-100); MEAN CORPUSCULAR HEMOGLOBIN 25.7 pg (25-34); MEAN CORPUSCULAR HGB CONC 31.6 g/dl (32-36); MEAN PLATELET VOLUME 9.1 fL (7.4-10.4); MONO % 4.7 %; MONO ABS # 0.33 K/uL (0.11-0.59); NEUT % 61.2 %; NEUT ABS # 4.29 K/uL (1.4-6.5); PLATELET COUNT 309 K/uL (130-400); RED CELL DISTRIBUTION WIDTH CV 13.6 % (11.5-14.5); RED CELL DISTRIBUTION WIDTH SD 40.5 fL (36.4-46.3); WHITE BLOOD COUNT 7.01 K/uL (4.8-10.8)
--- NOTE | 2018-02-22 14:51 | DIAGNOSTIC IMAGING REPORT ---
CHEST 2 VIEWS ROUTINE CLINICAL HISTORY: PAT preoperative evaluation COMPARISON STUDY: 08/14/2016 FINDINGS: The bones soft tissues and hemidiaphragms are normal. The cardiomediastinal silhouette is normal. The lungs are clear. The pulmonary vasculature is normal. IMPRESSION: Negative chest. The above report was generated using voice recognition software. It may contain grammatical, syntax or spelling errors. Electronically signed by: George Dias M.D. 02/22/2018 2:50 PM Dictated Date/Time: 02/22/2018 2:49 PM
[2018-02-22 14:56] LABS: CALCIUM 9.3 mg/dl (8.5-10.1); CREATININE 0.68 mg/dl (0.60-1.20); POTASSIUM 3.6 mmol/L (3.5-5.1)
[~2018-03-08] VITALS: Ht 162.6 cm; Wt 75.0 kg
[2018-03-08] VITALS (14 sets, daily range): BP systolic 127–158; BP diastolic 74–115; PULSE 70–88; TEMP 36.3–37.2; O2SAT 94–99; Ht 162.6 cm; Wt 75.0 kg
[~2018-03-08 06:11] MED LIST changes: +ACETAMINOPHEN 500 MG TAB PO SCH; -AMOX500C3 PO; +CEFAZOLIN 1000MG IV PUSH 7.5 ML IV SCH; +CINNAMON PO; +CeleBREX 200 MG CAP PO SCH; +GABAPENTIN 600 MG PO SCH; +GARL10007 PO; +GLUCTAB7 PO; +LACTATED RINGER'S 1000ML 1,000 ML IV SCH; -NAPR-1169 PO; +PANT40TA PO; -ROSU20TA PO; +TRAM-10 PO; +TURMERIC PO; -VITACAP26 PO; +VITAMIN B12 PO
[2018-03-08] MEDS ORDERED: BACITRACIN 50000 UNIT VIAL ONE (06:53)
[2018-03-08] MEDS ORDERED: GLYCOPYRROLATE INJ 0.2 MG/ML VIAL ONE (07:07)
[2018-03-08] MEDS ORDERED: PHENYLEPHRINE 100MCG/ML 5ML SYR ONE (07:07)
[2018-03-08] MEDS ORDERED: PROPOFOL IV EMULSION 10 MG/ML 20 ML VIAL ONE (07:07)
[2018-03-08] MEDS ORDERED: ONDANSETRON INJ 2 MG/ML 2 ML VIAL ONE ×2 (07:07→08:13)
[2018-03-08] MEDS ORDERED: LIDOCAINE HCL 2% 2 ML VIAL (20MG/ML) ONE (07:07)
[2018-03-08] MEDS ORDERED: EpHEDrine SULFATE 50MG/5ML SYR ONE (07:07)
[2018-03-08] MEDS ORDERED: NEOSTIGMINE METHYLSULFATE 1 MG/ML 10ML VIAL ONE (07:07)
[2018-03-08] MEDS ORDERED: LARYING-O-JET KIT (LTA) ONE (07:07)
[2018-03-08] MEDS ORDERED: DEXAMETHASONE SOD INJ 4 MG/ML VIAL ONE (07:07)
[2018-03-08] MEDS ORDERED: ROCURONIUM BROMIDE 10 MG/ML 5 ML VIAL ONE (07:07)
[2018-03-08] MEDS ORDERED: MIDAZOLAM HCL 1 MG/ML 2ML VIAL ONE (07:08)
[2018-03-08] MEDS ORDERED: FENTANYL CITRATE INJ 50 MCG/1 ML 2 ML VIAL ONE (07:08)
--- NOTE | 2018-03-08 07:27 | History & Physical Bridge Note ---
H&P Re-Evaluation Bridge Note: I have examined the patient, reviewed the History & Physical and in the interval since the performance of the History & Physical I have noted the following changes of clinical significance: No changes noted
--- NOTE | 2018-03-08 07:29 | History and Physical ---
History & Physical Date March 08, 2018. Chief Complaint Neck and arm pain History of Present Illness The patient is a 57 year old female with complaints of neck and arm pain Past Medical/Surgical History Medical Problems: (1) Asthma (2) Hypertension Surgical Problems: (1) S/P tonsillectomy Additional History Hepatic Disease: No Endocrine Disorder: No Kidney Disease: No Hypertension: No Heart Disease: No Bleeding Tendencies: No Infectious Diseases: No Allergies Coded Allergies: Codeine (Verified Allergy, Unknown, THROAT SWELLING, 02/22/18) Hydrocodone (Verified Allergy, Unknown, NAUSEA, 02/22/18) Home Medications Scheduled Apremilast (Otezla), 30 MG PO BID Cholecalciferol (Vitamin D3), 1 TAB PO PRN Garlic (Garlic), 1,000 MG PO QAM Qyhgrgtwjbg-Agpeuzedayb-Xnd C- (Glucosamine Chondroitin), 1 TAB PO BID Multivitamin (Multivitamin), 2 TAB PO QAM [Cinnamon], 1 TAB PO QAM [Turmeric], 1 TAB PO QAM [Vitamin B12], 1 TAB PO QAM Scheduled PRN Acetaminophen (Tylenol Extra Strength), 2 TABS PO TID PRN for Pain Albuterol Hfa (Ventolin Hfa), 2-4 PUFFS INH Q6H PRN for Cough Diphenhydramine Hcl (Sleep) (Sleep Aid), 1 TAB PO HS PRN for PRN Pantoprazole (Protonix), 40 MG PO BID PRN for RN Tramadol (Ultram), 50 MG PO Q4H PRN for Pain Physical Examination Skin: warm/dry, no rash Eyes: normal inspection, EOMI, sclerae normal ENT: normal ENT inspection, pharynx normal Head: normocephalic, atraumatic Neck: supple, no adenopathy, trachea midline Respiratory/Chest: lungs clear, normal breath sounds, no respiratory distress Cardiovascular: regular rate, rhythm, no edema, no murmur Abdomen / GI: normal bowel sounds, non tender Back: normal inspection Extremities: normal inspection, normal range of motion Neurologic/Psych: no motor/sensory deficits, alert, normal reflexes, oriented x 3 Diagnosis Cervical spinal stenosis Plan of Treatment Corpectomy C6
[2018-03-08] MEDS ORDERED: HYDROmorphone INJ 2 MG/ML SYR/VIAL IV PRN (07:30)
[2018-03-08] MEDS ORDERED: EpHEDrine SULFATE INJ 50 MG/ML AMP IV PRN (07:30)
[2018-03-08] MEDS ORDERED: PHENYLEPHRINE 100MCG/ML 5ML SYR IV PRN (07:30)
[2018-03-08] MEDS ORDERED: ONDANSETRON INJ 2 MG/ML 2 ML VIAL IV PRN ×2 (07:30→09:30)
[2018-03-08] MEDS ORDERED: ATROPINE SULFATE 0.1 MG/ML 5ML SYR IV PRN (07:30)
[2018-03-08] MEDS ORDERED: HYDROmorphone INJ 2 MG/ML SYR/VIAL ONE ×2 (08:13→09:42)
[2018-03-08] MEDS ORDERED: FLOSEAL HEMOSTATIC MATRIX 10ML TOP ONE (09:09)
--- NOTE | 2018-03-08 09:16 | [facility] Operative Report ---
Operative Report Operative Date March 08, 2018. Pre-Operative Diagnosis Cervical spinal stenosis Post-Operative Diagnosis Same Procedure(s) Performed 1. Anterior cervical corpectomy C6 with foraminotomies. #2 anterior cervical arthrodesis C5-C7. #3 placement of peek cage 23 mm in height C5-C7. #4 placement of locally harvested morselized autograft with DBM in the cage. #5 application of marquez plate and screws from C5-C7. Surgeon Dr. Cisneros Finish Patcher Surgeon(s) Patti Garza PA-C Estimated Blood Loss 25 Findings Severe spinal stenosis Specimens None per surgeon Description of Procedure Patient was met with preoperatively case discussed all questions addressed. After informed consent obtained patient was taken to the operative suite underwent intubation and placed in the supine position the James table to head Garrison headholder. All bony prominences well-padded eyes inspected to ensure no external pressure placed upon. This point the anterior cervical spine was prepped and draped in the normal sterile fashion. With the assistance of fluoroscopy identified the C6 vertebral body a transverse incision was then placed along the right anterior aspect of the cervical spine overlying this region. Sharp dissection with the assistance of bipolar electrocautery was performed on March exposing the anterior cervical spine from C5-C7. Self-retaining retractors placed. Then performed complete discectomy of C5-6 up to the uncovertebral joints bilaterally followed by C6-7. Bahama distracting pins were then placed in C5 and C7 to distract across the C6 vertebral body. Complete corpectomy was then performed including removal of all posterior annular fibers longitudinal ligaments and bilateral foraminotomies. Endplates were then burred to subcortical bleeding bone and a 23 mm peek cage filled with autograft and DBM tapped in position. Distracting apparatus was removed. All anterior aspect burred to a smooth cortical surface fair. Marquez plate and screws applied with the assistance of fluoroscopy. Incision was then copiously irrigated explored to ensure there is no damage to surrounding structures or remaining bleeding. A 10 round LISA drain inserted. Incision was then closed with 2 Vicryl in a fashion of 4 Monocryl for final skin closure. Steri-Strips sterile dressing placed. Patient will continue PACU stable condition. Please note Patti De Jesus was present throughout the entire procedure involved in patient positioning complex portions of the surgery and fashion closure. I attest to the content of the Intraoperative Record and any orders documented therein. Any exceptions are noted below.
[2018-03-08] MEDS ORDERED: RACEPINEPHRINE 2.25% NEBU SOLN 0.5 ML VIAL INH PRN (09:30)
[2018-03-08] MEDS ORDERED: DiphenhydrAMINE HCL 50 MG/ML VIAL IV PRN (09:30)
[2018-03-08] MEDS ORDERED: ACETAMINOPHEN IV 1,000 MG in EMPTY BAG 0 ML IV PRN (09:30)
[2018-03-08] MEDS ORDERED: MAGNESIUM HYDROXIDE SUSP 30 ML UDC PO PRN (09:30)
[2018-03-08] MEDS ORDERED: ALBUTEROL HFA 8 GM INHALER INH PRN (09:30)
[2018-03-08] MEDS ORDERED: PANTOprazole SOD 40 MG TAB PO PRN (09:30)
[2018-03-08] MEDS ORDERED: LORAZEPAM INJ 0.5 MG in SYRINGE 0.75 ML IV PRN (09:30)
[2018-03-08] MEDS ORDERED: DEXAMETHASONE INJ 8 MG in SYRINGE 0 ML IV PRN (09:30)
[2018-03-08] MEDS ORDERED: HYDROmorphone INJ 0.5 MG/0.5 ML SYR IV PRN (09:30)
[2018-03-08] MEDS ORDERED: DO NOT ADMINISTER FLU VACCINE PRN (09:30)
[2018-03-08] MEDS ORDERED: LORAZEPAM 0.5 MG TAB PO PRN (09:30)
[2018-03-08] MEDS ORDERED: NALOXONE HCL 0.4 MG/1 ML VIAL/CARP IV PRN (09:30)
[2018-03-08] MEDS ORDERED: OXYCODONE/ACETAMINOPHEN 5-325 TAB PO PRN (09:30)
[2018-03-08] MEDS ORDERED: TRAMADOL HCL 50 MG TAB PO PRN (09:30)
[2018-03-08] MEDS ORDERED: DO NOT ADMINISTER PNEUMOCOCCAL VACCINE PRN (09:30)
--- NOTE | 2018-03-08 09:36 | DIAGNOSTIC IMAGING REPORT ---
CERVICAL 2 OR 3 VIEWS HISTORY: 57 years-old Female C6 CORPECTOMY COMPARISON: None available TECHNIQUE: 2 spot fluoroscopic views of the cervical spine were obtained utilizing 13.2 seconds of fluoroscopy time FINDINGS: Postoperative changes from C6 corpectomy with anterior plate and screw fusion at what appears to be the C5-C7 levels. Alignment is satisfactory. Suggestion of multilevel endplate spurring and facet arthrosis. IMPRESSION: Fluoroscopic assistance as above. Please see operative report for further details. The above report was generated using voice recognition software. It may contain grammatical, syntax or spelling errors. Electronically signed by: Anibal Carrillo M.D. 03/08/2018 9:35 AM Dictated Date/Time: 03/08/2018 9:33 AM
[2018-03-08] MEDS ORDERED: IV FLUIDS COMPLETED PRN (10:00)
[2018-03-08] MEDS ORDERED: HYDROmorphone INJ 0.5 MG/0.5 ML SYR ONE (10:11)
--- NOTE | 2018-03-08 10:52 | Anesthesiology Progress Note ---
Anesthesia Post Op Note Date & Time March 08, 2018 at 10:52 Vital Signs Pain Intensity: 3 Vital Signs Past 12 Hours Date Time Temp Pulse Resp B/P (MAP) Pulse Ox O2 Delivery O2 Flow Rate FiO2 03/08/18 10:00 66 14 03/08/18 10:00 66 14 03/08/18 10:00 66 14 122/71 99 03/08/18 10:00 66 14 122/71 99 03/08/18 09:55 66 10 03/08/18 09:55 67 10 120/72 99 03/08/18 09:55 66 10 03/08/18 09:55 67 10 120/72 99 03/08/18 09:50 66 11 129/73 99 03/08/18 09:50 66 11 03/08/18 09:50 66 11 03/08/18 09:50 66 11 129/73 99 03/08/18 09:45 67 13 03/08/18 09:45 67 13 131/78 100 03/08/18 09:45 67 13 03/08/18 09:45 67 13 131/78 100 03/08/18 09:40 67 19 03/08/18 09:40 67 19 03/08/18 09:40 67 19 140/82 99 03/08/18 09:40 67 19 140/82 99 03/08/18 09:35 77 15 03/08/18 09:35 78 15 142/86 100 03/08/18 09:35 77 15 03/08/18 09:35 78 15 142/86 100 03/08/18 09:30 84 15 03/08/18 09:30 84 15 153/80 100 03/08/18 09:30 84 15 03/08/18 09:30 84 15 153/80 100 03/08/18 09:25 36.3 86 14 154/93 (105) 99 Oxymask 10 03/08/18 09:25 86 17 154/93 100 03/08/18 09:25 86 17 03/08/18 09:25 86 17 154/93 100 03/08/18 09:25 86 17 03/08/18 06:58 36.6 88 20 158/115 (129) 96 Room Air Notes Mental Status: alert / awake / arousable, participated in evaluation Pt Amnestic to Procedure: Yes Nausea / Vomiting: adequately controlled Pain: adequately controlled Airway Patency, RR, SpO2: stable & adequate BP & HR: stable & adequate Hydration State: stable & adequate Anesthetic Complications: no major complications apparent
[2018-03-08] MEDS ORDERED: SCOPOLAMINE 1.5 MG TDSY TD SCH (15:30)
[2018-03-08] MEDS: CEFAZOLIN IV 1,000 MG in SYRINGE 0 ML IV SCH ×2 (16:19→23:13)
[2018-03-08] MEDS: LACTATED RINGER'S 1000ML 1,000 ML IV SCH (16:21)
[2018-03-08] MEDS: CHECK SCOPOLAMINE PATCH PLACEMENT SCH ×2 (16:21→23:13)
[2018-03-08] MEDS: DOCUSATE SODIUM 100 MG CAP PO SCH (20:51)
[2018-03-09] VITALS (11 sets, daily range): BP systolic 131–154; BP diastolic 77–87; PULSE 65–79; TEMP 36.5–36.9; O2SAT 96–100
[2018-03-09] MEDS: LACTATED RINGER'S 1000ML 1,000 ML IV SCH (02:25)
[2018-03-09] MEDS: CHECK SCOPOLAMINE PATCH PLACEMENT SCH (08:00)
[2018-03-09] MEDS ORDERED: TRAM-10 PO (08:31)
--- NOTE | 2018-03-09 08:32 | Discharge Instructions ---
Discharge Instructions Date of Service March 09, 2018. Admission Reason for Admission: Cervical Spinal Stenosis Discharge Discharge Diagnosis / Problem: cervical stenosis Discharge Goals Goal(s): Improve function Activity Recommendations Activity Limitations: per Instructions/Follow-up section . Instructions / Follow-Up Instructions / Follow-Up ACTIVITY RECOMMENDATIONS: SELF CARE INSTRUCTIONS AFTER CERVICAL FUSIONS 1. No smoking. Smoking drastically decreases the chance of a solid fusion. 2. No bending, lifting more than 5 pounds, or twisting (roll like a log when turning in bed). 3. You may shower 3 days after surgery. Thoroughly dry wound. Do not soak in the tub. 4. Cervical collar: Must be worn at all times including sleeping. You may remove the brace only to bath, eat and if you are sitting in a recliner. 5. Please walk as much as you can for exercise. Gradually increase the distance that you walk as your endurance increases. SPECIAL CARE INSTRUCTIONS: VERY IMPORTANT TO READ AND REVIEW A. Do not take any anti-inflammatory medications (i.e. Indocin, Advil, Aspirin, Naprosyn, Aleve, Motrin, etc.) as these may inhibit the chance of a solid fusion. Tylenol is okay to take. B. Your surgical incision has been closed with a cosmetic suture under the skin that will dissolve in about 6 weeks. In 14 days, you can use a pair of clean scissors and cut the suture that is left outside of the skin at the ends of your incision. C. Complications are uncommon, but please contact us if you have any signs or symptoms of: 1. wound infection (fever higher than 102.5 degrees F, redness, separation of wound, drainage, or increasing pain from the incision) 2. blood clots in legs (pain, swelling, redness and warmth in legs) 3. urinary tract infection (fever higher than 102.5 degrees, burning upon urination or increased frequency of urination) 4. nerve problems (inability to walk on your toes or heels, numbness, loss of bowel or bladder control) 5. any other symptoms that concern you. D. Please call the office at if you have any concerns or questions about your operation or recovery. MANAGING PAIN AFTER SPINAL SURGERY 1. Narcotic medication is intended for short-term use and will be provided for surgical pain. Surgical pain usually lasts for a period of 4-6 weeks. Narcotic medication includes Percocet, Vicodin, Darvocet, Tylenol #3 or Lortab. 2. Longer-term pain is more appropriately treated with non-narcotic medication such as Tylenol ES. 3. Muscle spasm is not appropriately treated with narcotics. Muscle relaxers such as Soma, Flexeril or Skelaxin can be used along with Tylenol ES. 4. Remember that we all live with some "aches and pains". This is not unusual or uncommon after an injury or as we get older. 5. We will provide appropriate medication within the normal guidelines of their prescribed use. We will also be very cautious and aware of potential abuse and extended duration of patients' medication needs. 6. Please allow 2-3 days to process refills. Prescriptions will not be mailed but must be picked up at the office. FOLLOW UP VISIT: Keep your scheduled follow-up appointment. Any questions, please call the office at . Current Hospital Diet Patient's current hospital diet: Clear Liquid Diet Discharge Diet Recommended Diet: Regular Diet Procedures Procedures Performed: 1. Anterior cervical corpectomy C6 with foraminotomies. #2 anteriorcervical arthrodesis C5-C7. #3 placement of peek cage 23 mm in heightC5-C7. #4 placement of locally harvested morselized autograft with DBM inthe cage. #5 application of huizar plate and screws from C5-C7. Pending Studies Studies pending at discharge: no Medical Emergencies . Who to Call and When: Medical Emergencies: If at any time you feel your situation is an emergency, please call 911 immediately. . Non-Emergent Contact Non-Emergency issues call your: Primary Care Provider . "Provider Documentation" section prepared by Castillo Cisneros. .
--- NOTE | 2018-03-09 08:57 | Discharge Summary ---
Orthopedic Discharge Summary Admission Date/Reason March 08, 2018 at 07:00 Cervical Spinal Stenosis. Discharge Date/Disposition March 09, 2018 Home Diagnosis Principal Diagnosis: Cervical spinal stenosis with myeloradiculopathy Admission Physical Exam As per Admitting History & Physical. Hospital Course Patient underwent anterior cervical corpectomy and fusion tolerated this well was taken to the orthopedic floor postoperatively. Postop day #1 she was swallowing well no hoarseness arm symptoms improved. LISA drain decreased appropriately. Subsequently discharged home. Discharge orders and instructions can be found in the chart for further review. Discharge Instructions Please refer to the electronic Patient Visit Report (Discharge Instructions) for additional information.
[2018-03-09] MEDS: DOCUSATE SODIUM 100 MG CAP PO SCH (09:17)
[2018-03-09] MEDS: CEFAZOLIN IV 1,000 MG in SYRINGE 0 ML IV SCH (09:19)
[2018-03-10] MEDS ORDERED: BISACODYL 5 MG TABEC PO PRN (06:00)
[2018-03-10] MEDS ORDERED: BISACODYL 10 MG SUPP PR PRN (06:00)
[2018-03-10] MEDS ORDERED: POLYETHYLENE (MIRALAX) 17 GM PACK PO SCH (09:00)
== END 2018-03-09 11:42 | disposition home or self-care (01) ==
LOC: C.ACU 06:11 → C.3E 07:00 → UNDOADMOB 09:20 → ENRESERV 13:32
PROVIDERS: ADMIT Orthopaedic Surgery Orthopaedic Surgery of the Spine; ATTEND Orthopaedic Surgery Orthopaedic Surgery of the Spine
DX: M48.02 Spinal stenosis, cervical region (principal); J45.909 Unspecified asthma, uncomplicated; I10 Essential (primary) hypertension; K44.9 Diaphragmatic hernia without obstruction or gangrene; K21.9 Gastro-esophageal reflux disease without esophagitis; E78.5 Hyperlipidemia, unspecified; Z88.5 Allergy status to narcotic agent

== ENCOUNTER 2019-07-25 06:39 | Observation (INO) ==
[2019-07-25] MEDS ORDERED: NiCARDipine HCL INJ 2.5 MG/ML 10 ML AMP ONE (07:08)
[2019-07-25] MEDS ORDERED: HEPARIN (PORCINE) 1000 UNIT/ML 10 ML (CATH LAB USE ONLY) ONE (07:08)
[2019-07-25] MEDS ORDERED: fentaNYL citrate 100 MCG/2 ML VIAL ONE (07:10)
[2019-07-25] MEDS ORDERED: MIDAZOLAM HCL 1 MG/ML 2ML VIAL ONE ×2 (07:10→08:59)
[2019-07-25] MEDS ORDERED: NITROGLYCERIN/D5W 100MCG/ML 20ML SYR ONE (07:11)
--- NOTE | 2019-07-25 08:04 | History & Physical Bridge Note ---
Date of Service July 25, 2019 History & Physical Bridge Note I have examined the patient, reviewed the History & Physical and in the interval since the performance of the History & Physical I have noted the following changes of clinical significance: no changes noted
--- NOTE | 2019-07-25 08:05 | Pre Anesthesia Assessment ---
Date of Service July 25, 2019 Pre Sedation Assessment Vital Signs Temp Pulse Pulse Resp BP BP Pulse Ox 07/26/19 07:17 36.8 C 73 20 122/71 96 07/26/19 03:48 36.6 C 62 18 127/78 96 07/25/19 23:08 36.8 C 65 20 128/73 97 07/25/19 22:20 68 07/25/19 19:47 36.9 C 84 20 140/84 94 07/25/19 15:45 73 21 07/25/19 15:30 73 17 07/25/19 15:15 77 25 H 07/25/19 15:11 73 20 122/70 96 07/25/19 15:10 75 19 136/72 07/25/19 15:09 36.7 C 76 19 122/70 96 07/25/19 15:00 81 20 130/81 07/25/19 14:45 74 17 145/80 H 07/25/19 14:30 79 19 145/83 H 92 07/25/19 14:15 74 13 137/78 89 L 07/25/19 14:00 78 19 138/96 96 07/25/19 13:45 72 13 153/73 H 97 07/25/19 13:30 69 13 157/93 H 98 07/25/19 13:15 67 13 143/87 H 97 07/25/19 13:02 66 14 163/67 H 100 07/25/19 13:00 65 18 99 07/25/19 12:46 68 17 153/83 H 98 07/25/19 12:45 67 17 100 07/25/19 12:30 66 18 172/88 H 99 07/25/19 12:15 69 15 172/155 H 100 07/25/19 12:00 68 19 172/85 H 100 07/25/19 11:45 70 12 177/101 H 100 07/25/19 11:30 66 12 156/96 H 100 07/25/19 11:18 36.5 C 68 20 168/89 H 99 07/25/19 11:15 64 17 168/89 H 07/25/19 11:06 63 17 167/97 H 07/25/19 11:00 75 16 96 07/25/19 10:45 65 15 161/93 H 95 07/25/19 10:30 62 13 170/118 H 96 Cardiovascular RRR, no murmur, no edema Respiratory normal respiratory effort, lungs clear to auscultation Pre-Sedation Airway Assessment Smoking Status: Never smoker Mallampati Class: II ASA: ASA2 Procedure Planning Contraindications for Sedation: none Current Medications Reviewed: Yes Notes The planned sedation has been discussed with the patient. Informed Consent was obtained. I have identified the patient, determined the appropriateness of sedation and have assessed the patient immediately prior to the procedure. All medicine(s) and interventions are by my order.
[2019-07-25] MEDS ORDERED: CLOPIDOGREL BISULFATE 300 MG TAB ONE (09:33)
--- NOTE | 2019-07-25 09:35 | Post Anesthesia Assessment ---
Date of Service July 25, 2019 Post Sedation Assessment Vital Signs Temp Pulse Pulse Resp BP BP Pulse Ox 07/26/19 07:17 36.8 C 73 20 122/71 96 07/26/19 03:48 36.6 C 62 18 127/78 96 07/25/19 23:08 36.8 C 65 20 128/73 97 07/25/19 22:20 68 07/25/19 19:47 36.9 C 84 20 140/84 94 07/25/19 15:45 73 21 07/25/19 15:30 73 17 07/25/19 15:15 77 25 H 07/25/19 15:11 73 20 122/70 96 07/25/19 15:10 75 19 136/72 07/25/19 15:09 36.7 C 76 19 122/70 96 07/25/19 15:00 81 20 130/81 07/25/19 14:45 74 17 145/80 H 07/25/19 14:30 79 19 145/83 H 92 07/25/19 14:15 74 13 137/78 89 L 07/25/19 14:00 78 19 138/96 96 07/25/19 13:45 72 13 153/73 H 97 07/25/19 13:30 69 13 157/93 H 98 07/25/19 13:15 67 13 143/87 H 97 07/25/19 13:02 66 14 163/67 H 100 07/25/19 13:00 65 18 99 07/25/19 12:46 68 17 153/83 H 98 07/25/19 12:45 67 17 100 07/25/19 12:30 66 18 172/88 H 99 07/25/19 12:15 69 15 172/155 H 100 07/25/19 12:00 68 19 172/85 H 100 07/25/19 11:45 70 12 177/101 H 100 07/25/19 11:30 66 12 156/96 H 100 07/25/19 11:18 36.5 C 68 20 168/89 H 99 07/25/19 11:15 64 17 168/89 H 07/25/19 11:06 63 17 167/97 H 07/25/19 11:00 75 16 96 07/25/19 10:45 65 15 161/93 H 95 07/25/19 10:30 62 13 170/118 H 96 Recovery Score Activity: Moves 4 extremities Respiration: Deep Breath/Cough Circulation: +/-20% PreAnes Value Consciousness: Fully Awake Oxygen Saturation: > 92% On Room Air Post Sedation Plan On clinical assessment, the patient appears to have tolerated the sedation without complications. Patient is recovering as anticipated. Patient will continue to be monitored by nursing and may be discharged when sedation discharge criteria are met per below protocol. Upon Completions of procedure and additional 15 minutes continue every 5 minute vital signs and the P.A.R. score; then discharge to a Phase I or Fast Track to Phase II per the following guidelines: * Discharge Patient to appropriate Phase II area if PAR is 8 or greater or return to pre- procedure baseline. The post - procedure orders will be as directed. * If PAR score is less than 8 or not return to pre-procedure baseline then patient will follow Phase I monitoring till PAR is reached for Phase II. The Phase I may be done in procedure room or may call to secure a Phase I area. * If naloxone or flumazenil are used for reversal, hold in Phase I for continued monitoring from when last reversal dose was given for a minimum of 60 minutes or longer pending the nurse and/or physician discretion of patient condition before discharge to Phase II. Please call the Sedation Physician to re-evaluate and complete post-note for discharge to Phase II area. Do NOT discharge from procedure sedation or Phase 1 until post- sedation evaluation note is complete by procedure /sedation MD Sedation Discharge Instructions to be given to the patient at discharge to home.
--- NOTE | 2019-07-25 09:45 | Post Anesthesia Assessment ---
Date of Service July 25, 2019 Post Sedation Assessment Vital Signs Temp Pulse Resp BP Pulse Ox 07/25/19 07:11 97.9 F 66 18 184/94 H 95 Recovery Score Activity: Moves 4 extremities Respiration: Deep Breath/Cough Circulation: +/-20% PreAnes Value Consciousness: Fully Awake Oxygen Saturation: > 92% On Room Air Discharge Sedation Level of Care: Fast Track Phase II Post Sedation Plan On clinical assessment, the patient appears to have tolerated the sedation without complications. Patient is recovering as anticipated. Patient will continue to be monitored by nursing and may be discharged when sedation discharge criteria are met per below protocol. Upon Completions of procedure and additional 15 minutes continue every 5 minute vital signs and the P.A.R. score; then discharge to a Phase I or Fast Track to Phase II per the following guidelines: * Discharge Patient to appropriate Phase II area if PAR is 8 or greater or return to pre- procedure baseline. The post - procedure orders will be as directed. * If PAR score is less than 8 or not return to pre-procedure baseline then patient will follow Phase I monitoring till PAR is reached for Phase II. The Phase I may be done in procedure room or may call to secure a Phase I area. * If naloxone or flumazenil are used for reversal, hold in Phase I for continued monitoring from when last reversal dose was given for a minimum of 60 minutes or longer pending the nurse and/or physician discretion of patient condition before discharge to Phase II. Please call the Sedation Physician to re-evaluate and complete post-note for discharge to Phase II area. Do NOT discharge from procedure sedation or Phase 1 until post- sedation evaluation note is complete by procedure /sedation MD Sedation Discharge Instructions to be given to the patient at discharge to home.
[2019-07-25] MEDS ORDERED: ACETAMINOPHEN 325 MG TAB PO PRN (09:47)
[2019-07-25] MEDS ORDERED: ONDANSETRON INJ 2 MG/ML 2 ML VIAL IV PRN (09:47)
--- NOTE | 2019-07-25 09:47 | Cardiac Catheterization ---
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 Cardiac Status Clinical evaluation leading to the procedure CAD Presenation: Unstable angina Anginal Classification: CCS III Heart Failure: No Cardiogenic Shock within 24 Hours: No Cardiac Arrest within 24 Hours: No Imaging Studies Past 6 Months: No Stress Studies Past 6 Months: No Diagnostic Physicians Name: Ayden Hahn MD Status: Elective Closure Device Percutaneous Entry Location: Radial Closure Device: Radial Band Recommendations: PCI without planned CABG PCI Indication: Unstable Angina Lesion Segment Name: proximal LAD Culprit Artery: Yes Stenosis Prior to Rx (%): 95 Chronic Total Occlusion: No IVUS: No FFR: No Pre-Procedure LAY Flow: 3 Previously Treated Lesion: No Lesion Complexity: Non-High/Non-C Lesion Length (mm): 15 Thrombus Present: Yes Bifurcation Lesion: Yes Guidewire Across Lesion: Stenosis Post-Procedure (%): 0 Post-Procedure LAY Flow: 3 Devices(s) Deployed: Yes Yes Intraprocedure Events Significant Disection: No Perforation: No Cardiac Cath Procedure Full Procedure Date July 25, 2019 Pre-Procedure Diagnosis Pre-Procedure Diagnosis: Acute Coronary Syndrome AUC Score AUC Score: 7 Post-Procedure Diagnosis Post-Procedure Diagnosis: Severe CAD and Successful PCI Procedure(s) Performed Procedure(s) Performed: Coronary Angiography and Drug Eluting Stent Mobile Product Manager Ayden Hahn MD Networking Specialist(s) Lisa Aguilar Estimated Blood Loss Estimated Blood Loss: 10 Medication(s) Medication(s): Clopidogrel, Fentanyl, Heparin, Lidocaine 1%, Nicardipine, Nitroglycerin and Versed Summary of Findings Indication: Accelerating angina Access: 6 Fr right radial artery Catheters: EBU 3.5 guide Findings: For full details of patient's coronary angiography please cath report dictated by Dr. Bryant. Briefly, patient found to have severe single vessel disease including a 95 % stenosis involving the proximal LAD. Decision to proceed with PCI. -- PCI -- Antithrombotic therapy: Heparin, clopidogrel Procedure: Left main cannulated with EBU 3.5 guide Skilled Nursing Case Manager 50 wire passed across lesion into distal vessel Pro-water wire passed into moderate caliber diagonal Proximal LAD lesion predilated with 2.5 compliant balloon Dilated lesion stented with 4.0 x 18 mm [place] drug-eluting stent Stent post-dilated with 4.0 noncompliant balloon IC vasodilators administered for spasm Post procedure LAY 3 flow, stent well expanded with minimal residual stenosis and no apparent cardiac complications. Arterial Closure: TR band Summary: 1. Successful PCI of proximal LAD with single drug-eluting stent (4.0 x 18 mm Aleksey). Recommendations: To PCU for continued monitoring Loaded with clopidogrel 600 mg in research lab assistant Continue dual-antiplatelet therapy for at least 6 months Continue statin, and ASCVD risk factor modification Consult cardiac Rehab Hemodynamics Rest Ao:: 139/64/96 Final Ao: 149/75 LV: -- Recommendations Recommendations: PCI without planned CABG Specimens Specimens: None Radiation Exposure (mGy) 2383 Contrast (mls) 130 Fluids (cc crystalloids) Fluids (cc crystalloids): 155 Drains Drains: none Anesthesia moderate Procedural Complication(s) None Disposition PCU I attest to the content of the Intraoperative Record and any orders documented therein. Any exceptions are noted below.
--- NOTE | 2019-07-25 09:51 | Cardiac Catheterization ---
Cardiac Cath Procedure Full Procedure Date July 25, 2019 Pre-Procedure Diagnosis Pre-Procedure Diagnosis: Angina AUC Score AUC Score: 7 Post-Procedure Diagnosis Post-Procedure Diagnosis: Severe CAD and Elevated Intracardiac Pressures Procedure(s) Performed Procedure(s) Performed: Coronary Angiography and Left Heart Cath Shellfish Meat Separator Operator Channing Bryant DO Car Hopper(s) Aguilar TRAVELING ELECTRICIAN Estimated Blood Loss Estimated Blood Loss: 10cc Medication(s) Medication(s): Fentanyl, Lidocaine 1%, Nicardipine, Nitroglycerin and Versed Summary of Findings 90% proximal LAD Hemodynamics Rest Ao:: 139/64/96 Final Ao: 149/75/103 LV: 142/-16 Recommendations Recommendations: PCI without planned CABG Radiation Exposure (mGy) 874 Contrast (mls) 100 Fluids (cc crystalloids) Fluids (cc crystalloids): 100cc Anesthesia Moderate sedation. Start 0813. End 0904. Sedation monitor Mychal CARCAMO Procedural Complication(s) None Disposition patient remained in clinical laboratory medical director for PCI of LAD I attest to the content of the Intraoperative Record and any orders documented therein. Any exceptions are noted below. 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 Cardiac Status Clinical evaluation leading to the procedure CAD Presenation: Unstable angina Anginal Classification: CCS II Heart Failure: No Coronary Anatomy Dominant: Right Left Main (% Stenosis): Normal LAD (% Stenosis): Proximal (90%), Mid (30%) and Distal (30%) D1 (% Stenosis): Ostial (20%) Circumflex (% Stenosis): Mid (30%) OM1 (% Stenosis): Ostial (10%) and Mid (30% ostial stenois involving secondary branch of OM) RCA (% Stenosis): Proximal (10%), Mid (30%) and Distal (10%) R PDA (% Stenosis): Proximal (20%) R PL1 (% Stenosis): Proximal (20%) AM (% Stenosis): Mid (30%) Diagnostic Physicians Name: Channing Bryant DO Status: Elective Closure Device Percutaneous Entry Location: Radial (Radial as=ccess obtained without difficulty, however, unable to advance catheter due to vasospasm) Closure Device: Angio-Seal and Radial Band Recommendations: PCI without planned CABG Intraprocedure Events Significant Disection: No Perforation: No
[2019-07-25] MEDS ORDERED: SODIUM CHLORIDE 0.9% 1000ML 1,000 ML IV SCH (10:00)
[2019-07-25] MEDS ORDERED: PANTOprazole 40 MG TAB PO PRN (10:30)
[2019-07-25] MEDS: METOPROLOL TARTRATE 50 MG TAB PO SCH (20:27)
[2019-07-26 05:57] LABS: Basophils # (auto) 0.01 K/uL (0-0.2); Basophils % (auto) 0.2 %; Eosinophils # (auto) 0.24 K/uL (0-0.5); Eosinophils % (auto) 4.2 %; Hematocrit (blood only) 41.1 % (37-47); Hemoglobin 13.1 g/dL (12.0-16.0); Lymphocytes # (auto) 1.82 K/uL (1.2-3.4); Lymphocytes % (auto) 31.9 %; Mean Corpuscular Hemoglobin 28.3 pg (25-34); Mean Corpuscular Hgb Conc 31.9 g/dL (32-36); Mean Corpuscular Volume 88.8 fL (80-100); Mean Platelet Volume 9.4 fL (7.4-10.4); Monocytes # (auto) 0.39 K/uL (0.11-0.59); Monocytes % (auto) 6.8 %; Neutrophils # (auto) 3.25 K/uL (1.4-6.5); Neutrophils % (auto) 56.9 %; Platelet Count 231 K/uL (130-400); RDW Coefficient of Variation 13.6 % (11.5-14.5); Red Blood Count 4.63 M/uL (4.2-5.4); White Blood Count 5.71 K/uL (4.8-10.8)
[2019-07-26 06:29] LABS: BUN Creatinine Ratio 22.8 (10-20); Calcium 8.8 mg/dl (8.5-10.1); Est GFR (African American) 115.6; Est GFR (Non-African American) 99.8; Potassium 4.1 mmol/L (3.5-5.1)
[2019-07-26] MEDS: METOPROLOL TARTRATE 50 MG TAB PO SCH (08:24)
[2019-07-26] MEDS ORDERED: CLOPIDOGREL BISULFATE 75 MG TAB PO SCH (09:00)
[2019-07-26] MEDS ORDERED: ASPIRIN 81 MG ECTAB PO SCH (09:00)
[2019-07-26] MEDS ORDERED: EZETIMIBE 10 MG TABLET PO SCH (09:00)
--- NOTE | 2019-07-26 10:37 | Cardiology Progress Note ---
Date of Service July 26, 2019 Assessment & Plan (1) Unstable angina: (2) Presence of stent in LAD coronary artery: (3) Dyslipidemia, goal LDL below 70: (4) Statin intolerance: (5) Hypertension: Continue dual antiplatelet therapy uninterrupted for minimum of 6 months post percutaneous intervention. Recommend PCSK9 inhibitor. Patient agreeable. She will continue other cardiovascular medications including metoprolol and Zetia. Appropriate use of sublingual nitroglycerin reviewed. Patient will not return to work until July 31. Post catheterization activity restrictions reviewed. All questions answered to satisfaction both patient and her family members. Subjective Patient seen and examined at the bedside. Denies chest or jaw discomfort overnight. Anxious for discharge. Tolerating current medications. No dysrhythmias on telemetry. Family present at bedside. They offer no additional concerns/complaints at this time. Patient has questions regarding return to work. Review of Systems Review of Systems: All systems reviewed & are unremarkable except as noted in HPI & below Physical Exam Physical Exam: General: NAD, AAO x3, well nourished. HEENT: Normocephalic. Atraumatic. Conjunctiva pink, no scleral icterus. Neck: No carotid bruits, the carotid upstrokes are brisk. No JVD. No HJR Heart: Regular normal S-1 and S-2 no S-3 or S-4 gallop. No murmurs or rub appreciated. PMI is not displaced. No RV heave. Lungs: Clear bilateral without rales , rhonchi, or wheeze. Abdomen: Normal bowel sounds. Soft. Nontender. No masses or organomegaly. No abdominal bruits. Extremities:Mild right-sided anterior wrist ecchymosis. No right groin ecchymosis or hematoma. Mild tenderness to palpation. No clubbing, cyanosis, or edema. Pulses: radial=2/4, Dorsalis pedis =2/4, posterior tibial=2/4. Neuro: Cranial nerves grossly intact. No focal motor deficit. Results & Data Vital Signs (Past 12 Hours) Vital Signs Temp Pulse Resp BP Pulse Ox 07/26/19 07:17 36.8 C 73 20 122/71 96 07/26/19 03:48 36.6 C 62 18 127/78 96 07/25/19 23:08 36.8 C 65 20 128/73 97 Laboratory Results Laboratory Results - last 24 hr 07/26/19 07/26/19 05:44 05:44 WBC 5.71 RBC 4.63 Hgb 13.1 Hct 41.1 MCV 88.8 MCH 28.3 MCHC 31.9 L RDW Std Deviation 44.0 RDW Coeff of Lesli 13.6 Plt Count 231 MPV 9.4 Immature Gran % (Auto) 0.0 Neut % (Auto) 56.9 Lymph % (Auto) 31.9 [place] % (Auto) 6.8 Eos % (Auto) 4.2 Baso % (Auto) 0.2 Immature Gran # (Auto) 0.00 Neut # (Auto) 3.25 Lymph # (Auto) 1.82 [place] # (Auto) 0.39 Eos # (Auto) 0.24 Baso # (Auto) 0.01 Sodium 141 Potassium 4.1 Chloride 108 H Carbon Dioxide 27 Anion Gap 6.0 BUN 15 Creatinine 0.64 Est Cr Clr Drug Dosing 98.0 Est GFR ( Amer) 115.6 Est GFR (Non-Af Amer) 99.8 BUN/Creatinine Ratio 22.8 H Glucose 108 H Calcium 8.8 (1) Hypertension Hypertension type: essential hypertension Qualified Code(s): I10 - Essential (primary) hypertension
--- NOTE | 2019-07-26 10:40 | Discharge Summary ---
Date of Service July 26, 2019 Admission HPI Per Admitting Provider Patient admitted to the outpatient patient presented to the outpatient clinic with exertional jaw discomfort. Symptoms concerning for unstable angina. Scheduled for diagnostic cardiac catheterization for further evaluation. No prior history of coronary disease. Carries history of statin intolerance, hypertension, and family history of CAD. Admission Exam Per Admitting Provider General: NAD, AAO x3, well nourished. HEENT: Normocephalic. Atraumatic. Conjunctiva pink, no scleral icterus. Neck: No carotid bruits, the carotid upstrokes are brisk. No JVD. No HJR Heart: Regular normal S-1 and S-2 no S-3 or S-4 gallop. No murmurs or rub appreciated. PMI is not displaced. No RV heave. Lungs: Clear bilateral without rales , rhonchi, or wheeze. Abdomen: Normal bowel sounds. Soft. Nontender. No masses or organomegaly. No abdominal bruits. Extremities: No clubbing, cyanosis, or edema. Pulses: radial=2/4, Dorsalis pedis =2/4, posterior tibial=2/4. Neuro: Cranial nerves grossly intact. No focal motor deficit. Principal Diagnosis Unstable angina status post percutaneous intervention, drug-eluting stent implantation, to left anterior descending artery without complication. Discharge Data Allergies Allergy/AdvReac Type Severity Reaction Status Date / Time codeine Allergy Unknown THROAT Verified 07/25/19 07:18 SWELLING hydrocodone Allergy Unknown NAUSEA Verified 07/25/19 07:18 lisinopril AdvReac Verified 07/25/19 07:21 Fuenhrn-Qqr-Azd Reductase AdvReac Verified 07/25/19 07:21 Inhibitor Consultations 07/25/19 09:49 Consult Cardiac Rehabilitation Routine Procedures Performed Operation Date: 07/25/19 08:00 Actual Procedures s Cineradiography w/Routine Exam - Channing Bryant DO p Cath, Left with Cors and Vent - Channing Bryant DO s Drug Eluting Stent SGl Vessel - Bon Hahn MD Ordered Studies 07/25/19 06:33 CL Cath Imgs for PACS use only Routine Hospital Course (1) Unstable angina: (2) Presence of stent in LAD coronary artery: (3) Dyslipidemia, goal LDL below 70: (4) Statin intolerance: (5) Hypertension: Continue dual antiplatelet therapy uninterrupted for minimum of 6 months post percutaneous intervention. Recommend PCSK9 inhibitor. Patient agreeable. She will continue other cardiovascular medications including metoprolol and Zetia. Appropriate use of sublingual nitroglycerin reviewed. Patient will not return to work until July 31. Post catheterization activity restrictions reviewed. All questions answered to satisfaction both patient and her family members. Total Time Total Time Spent Total Time Spent (In Minutes): 30 Total Time Includes: Examination of the Patient, Discharge Planning, Medication Reconciliation and Communication With Other Providers Discharge Plan Discharge Items Reason For Visit: Exercise Induced Angina Medications and DC Order Prescriptions: No Action ALBUTEROL HFA (VENTOLIN HFA) 200 PUFFS/18,000 MCG AEROSOL,SOLN 2 - 4 puff Inhalation Q6H PRN (Reason: Cough) Qty: 0 RF: 0 Apremilast (Otezla) 30 MG tablet 30 mg PO BID Qty: 0 RF: 0 Multivitamin tablet 2 tab PO QAM Qty: 0 RF: 0 CHOLECALCIFEROL (VITAMIN D3) 2,000 UNIT tablet 1 tab PO PRN Qty: 0 RF: 0 [id number] C- (GLUCOSAMINE CHONDROITIN) 1 TAB tablet 1 tab PO BID Qty: 0 RF: 0 Pantoprazole (Protonix) 40 MG tablet 40 mg PO BID PRN (Reason: RN) Qty: 30 RF: 0 VITAMIN B12 1 tab PO QAM Qty: 0 RF: 0 metoprolol tartrate 50 mg Tablet 50 mg PO BID RF: 0 magnesium 250 mg Tablet 500 mg PO DAILY RF: 0 ezetimibe [Zetia] 10 mg Tablet 10 mg PO DAILY RF: 0 Admission Data Admit Date/Time: 07/25/19 09:33 Attending Provider: Channing Bryant Admit Provider: Channing Bryant Primary Care Provider: Alis Patterson
== END 2019-07-26 11:50 | disposition home or self-care (01) ==
LOC: CC 06:39 → 2E 06:39